=== PATIENT | male | born 1995 | race Caucasian/White ===

== ENCOUNTER 2019-03-27 12:29 | Emergency (ER) | payer MEDICAID, SELFPAY ==
[2019-03-27] VITALS (10 sets, daily range): BP systolic 115–144; BP diastolic 66–95; PULSE 68–93; RESP 13–20; TEMP 37; O2SAT 98–99
--- NOTE | 2019-03-27 12:52 | DI.RAD_ITS ---
EXAM: XR CHEST 2V PA LATERAL XR CHEST 2V PA LATERAL CLINICAL HISTORY: chest pain chest pain TECHNIQUE: 2D digital imaging was performed. COMPARISON: No exams were available for comparison FINDINGS: The heart is not enlarged. The lungs are clear and well expanded. No pleural effusion seen. Mediastin al contours appear intact. IMPRESSION: Normal chest
[2019-03-27] MEDS: LORazepam 1 MG TAB PO (12:58)
--- NOTE | 2019-03-27 13:12 | ED.GENADUL_ITS ---
Discharge Plan Disposition Patient Disposition: HOME Condition: Stable Discharge Details Chief Complaint: Chest Pain Clinical Impression: Shortness of breath ED Provider: Ashu Craig Home Meds and New Rx's Prescriptions: No Action No Known Home Meds RF: 0 Discharge Instructions Instructions: Dyspnea (ED) Additional Instructions: Your xray and lab work were normal. I suspect part of what you are feeling is due to anxiety If you feel you are becoming more ill or have worsening symptoms return to your closest emergency department Medical Decision Making 23 yo male who denies chornic medical problems but does have hx of anxiety comes in with 3 days of burning and sharp chest pain. He states it started after he bit some hemp off a stem on Friday and is worried it could be something from that. He denies pain with exertion, radiation of pain or diaphoresis or n/v. He is speaking in full sentences with clear lungs, no pedal edema, normal vascular exam and no calf pain. He is wells score low and perc negative so doubt PE. Will obtain xray to eval for possible ptx though unlikely given no pleuritic pain and normal lung exam. Heart score is 0, will send troponoin. No tearing back pain and normal vascular exam so doubt dissection pt remains stable and workup negative. Feels mildly better after ativan. Will d/ c and advised f/u with pcp and return precautions giiven Differential Diagnosis Differential Diagnosis: ptx, anxiety, nstemi Imaging Data Radiologic Study: Attestation: I personally reviewed and interpreted this imaging study as follows: Imaging: X-Ray Radiologist's impression: no acute findings Lab Data Lab results reviewed: Yes I reviewed the patient's lab results. ECG Data Attestation: I personally reviewed and interpreted this ECG (s) as follows: Prior ECG tracings: not available for review Interpretation: sinus rhythm, rate of 75, qtc 393, no acute st t wave ischmic findings HPI General Mode of arrival: ambulatory . Date/Time Provider Initiated Documentation: 03/27/19 12:33 . Limitations to Documentation: no limitations . Information obtained by: patient . History of Present Illness 23 year old M presents to the emergency department with the chief complaint of chest pain, described as moderate, Quality is described as aching, and it has been c onstant. No relieving factors improve symptom(s), No exacerbating factors reported . Patient did receive the following treatments prior to arrival, none Related Data Home Medications Medication Instructions Recorded Confirmed Unknown [No Known Home Meds] 03/27/19 03/27/19 Allergies Allergy/AdvReac Type Severity Reaction Status Date / Time No Known Allergies Allergy Unverified 03/27/19 12:49 General Stated Complaint: Chest Pain CAMMY: 2 Review of Systems Review of Systems ROS Unobtainable: All systems reviewed & are unremarkable except as noted in HPI and below Constitutional Constitutional: Denies chills, Denies fever(s) and Denies weakness ENT Ears, Nose, Mouth, and Throat: Denies change in voice Cardiovascular Cardiovascular: Denies dyspnea Respiratory Respiratory: Denies cough and Denies dyspnea Gastrointestinal Gastrointestinal: Denies nausea and Denies vomiting Musculoskeletal Musculoskeletal: Denies joint swelling Neurologic Neurologic: Denies weakness [facility] Social History Drug use: Socially Substance use type: marijuana Do you feel safe at home: Yes Exam Const General: no acute distress and anxious Orientation: alert HENMT Head: normal to inspection Ears: external ears normal General nose exam: external nose normal Mouth: moist mucous membranes Eyes General: appearance normal, both eyes and all related structures Neck Neck: normal visual inspection Chest Chest: normal inspection of the chest Resp Effort & Inspection: normal respiratory effort and able to speak in complete sentences Cardio Rate: regular rate Skin General skin exam: no rashes or lesions noted Neuro General: alert and oriented x3 Extrem General: normal to inspection Psych Mental Status: mental status grossly normal Course Vital Signs Vital signs: Vital Signs Temperature 37 C 03/27/19 12:41 Pulse 77 03/27/19 12:41 Respiratory Rate 16 03/27/19 12:41 Blood Pressure 144/95 H 03/27/19 12:41 Pulse Oximetry 99 03/27/19 12:41 Temperature 37 C 03/27/19 12:41 Temperature Source Temporal Artery Scan 03/27/19 12:41 Pulse 77 03/27/19 12:41 Respiratory Rate 16 03/27/19 12:41 Respiratory Effort 03/27/19 12:50 Respiratory Depth Normal 03/27/19 12:50 Blood Pressure 144/95 H 03/27/19 12:41 Blood Pressure Position Sitting 03/27/19 12:41 Pulse Oximetry 99 03/27/19 12:41 Oxygen Delivery Method Room Air 03/27/19 12:41 Oxygen Flow Rate 0 03/27/19 12:41 Pain Level 8 03/27/19 12:50
[2019-03-27 13:24] LABS: Abs Immature Grans 0.01 k/cumm (0.0-0.09); Absolute Basophil Count 0.08 k/cumm (0.0-0.2); Absolute Eosinophil Count 0.24 k/cumm (0.0-0.7); Absolute Lymphocyte Count 2.39 k/cumm (1.2-3.4); Absolute Monocyte Count 1.43 k/cumm (0.11-0.7); Absolute Neutrophil Count 2.83 k/cumm (1.2-6.7); Basophils % 1.1; Eosinophils % 3.4; HCT 44.3 % (40.0-50.0); HGB 15.9 g/dL (13.5-17.5); Immature Grans % 0.1; Lymphocytes % 34.2; Mean Corp. HGB Concentration 35.9 g/dL (32.0-36.0); Mean Corpuscular Hemoglobin 29.1 pg (27.0-33.0); Mean Corpuscular Volume 81.1 fL (80-95); Mean Platelet Volume 9.1 fL (8.0-11.0); Monocytes % 20.5; Neutrophils % 40.7; Platelet Count 278 x1000/uL (130-400); RBC 5.46 m/cumm (4.50-6.00); RBC Distribution Width 12.3 % (11.8-14.1); White Blood Cell Count 6.98 k/cumm (4.4-10.8)
--- NOTE | 2019-03-27 13:25 | DI.VRAD_ITS ---
PROCEDURE INFORMATION: Exam: XR Chest, 2 Views Exam date and time: 03/27/2019 1:15 PM Clinical history: 23 years old, male; Other: Chest pain TECHNIQUE: Imaging protocol: XR of the chest Views: 2 views. COMPARISON: No relevant prior studies available. FINDINGS: Lungs: Unremarkable. No consolidation. Pleural space: Unremarkable. No pleural effusion. No pneumothorax. Heart/Mediastinum: Unremarkable. No cardiomegaly. Bones/joints: Unremarkable. IMPRESSION: No acute findings. Dictated and Authenticated by: Sameer Schulz MD. Ordering:STU Wakefield MD
[2019-03-27 13:39] LABS: ALT 37 U/L (16-63); AST 32 U/L (15-37); Albumin 4.5 g/dL (3.4-5.0); Alkaline Phosphatase 85 U/L (46-116); Anion Gap 13.1 mmol/L (3-11); BUN 12 mg/dL (7-18); Bilirubin, Total 0.8 mg/dL (0.2-1.0); CO2 23.9 mmol/L (21.0-32.0); CREATININE 0.94 mg/dL (0.70-1.30); Calcium 9.3 mg/dL (8.5-10.1); Chloride 104 mmol/L (98-107); Glucose 73 mg/dL (70-100); Potassium 3.7 mmol/L (3.5-5.1); Sodium 141 mmol/L (136-145); Total Protein 7.7 g/dL (6.4-8.2)
[2019-03-27 13:40] LABS: Troponin I < 0.05 ng/mL (0.00-0.06)
== END 2019-03-27 13:58 | disposition home or self-care (01) ==
LOC: ER 14:05
PROVIDERS: Emergency Provider Emergency Medicine
DX: R06.02 Shortness of breath (principal); F41.9 Anxiety disorder, unspecified
CPT/HCPCS: 36415; 80053; 93005; 99285; 71046; 84484; 85025; 93010